=== PATIENT | male | born 1960 | race Caucasian/White ===

== ENCOUNTER 2016-06-14 16:59 | Emergency (ER) | payer OTHER, MEDICAID ==
[2016-06-14 17:22] VITALS: BP 179/106; PULSE 92; RESP 18; TEMP 98.1; O2SAT 95
== END 2016-06-14 18:27 | disposition left against medical advice (07) ==
DX: Z53.21 Procedure and treatment not carried out due to patient leaving prior to being seen by health care provider (principal)